=== PATIENT | male | born 1940 | race African-American/Black ===

== ENCOUNTER 2018-09-27 07:25 | Emergency (ER) | payer OTHER ==
[~2018-09-27] VITALS: Ht 170.2 cm; Wt 68.0 kg
[2018-09-27] MEDS ORDERED: diphenhydrAMINE 50 MG/ML VIAL IVP ONE (08:00)
[2018-09-27] MEDS ORDERED: FAMOTIDINE 20 MG/2 ML VIAL IVP ONE (08:00)
[2018-09-27] MEDS ORDERED: methylPREDNISolone SOD SUCC PF 125 MG/2 ML VIAL. IV ONE (08:00)
--- NOTE | 2018-09-27 08:29 | PHYS DOC ---
Past Medical History Past Medical History: No Pertinent History Past Surgical History: No Surgical History Alcohol Use: Occasionally Drug Use: None Adult General Chief Complaint Chief Complaint: FACE PROBLEM HPI HPI Patient is a 78-year-old male who presents with complaint of swelling to his lips that started yesterday. Patient states that he had noticed some itching yesterday morning around his cheeks and his lips and next thing he noticed, he had a lot of swelling. Patient does not take any medications and specifically does not take HALI inhibitor's. Patient states that he has had one similar prior episode in the past but has not identified any triggers. He does indicate that he shaved yesterday with the same shaving lotion as he has always used. He denies any swelling of his tongue, itchy throat, sore throat or difficulty swallowing. He also denies any shortness of breath. He has not yet taken any medications for the swelling. Review of Systems Review of Systems Constitutional: Denies fever or chills [] Eyes: Denies change in visual acuity, redness, or eye pain [] HENT: Denies nasal congestion or sore throat [] Respiratory: Denies cough or shortness of breath [] Cardiovascular: No additional information not addressed in HPI [] Integument: Denies rash or skin lesions. Positive lip swelling. [] All other systems were reviewed and found to be within normal limits, except as documented in this note. Current Medications Current Medications Current Medications Medications (Trade) Dose Ordered Sig/Cristian Start Time Stop Time Status Last Admin Dose Admin Diphenhydramine HCl (Benadryl) 50 mg 1X ONCE 09/27/18 08:30 09/27/18 08:31 DC 09/27/18 08:19 50 MG Famotidine (Pepcid Vial) 20 mg 1X ONCE 09/27/18 08:00 09/27/18 08:05 DC 09/27/18 08:18 20 MG Methylprednisolone Sodium Succinate (SOLU-Medrol 125MG VIAL) 125 mg 1X ONCE 09/27/18 08:00 09/27/18 08:05 DC 09/27/18 08:18 125 MG Allergies Allergies Allergies Coded Allergies Type Severity Reaction Last Updated Verified No Known Drug Allergies 09/27/18 No Physical Exam Physical Exam Constitutional: Well developed, well nourished, no acute distress, non-toxic appearance. [] HENT: Normocephalic, atraumatic, bilateral external ears normal, oropharynx moist, no oral exudates, nose normal. There is marked swelling of upper and lower lips as well as small amount of soft tissue swelling extending several centimeters around the perioral region. [] Eyes: PERRLA, EOMI, conjunctiva normal, no discharge. [] Neck: Normal range of motion, no tenderness, supple, no stridor. [] Cardiovascular:Heart rate regular rhythm [] Lungs & Thorax: Bilateral breath sounds clear to auscultation [] Skin: Warm, dry, no erythema, no rash. [] Extremities: No tenderness, no cyanosis, no clubbing, ROM intact, no edema. [] Neurologic: Alert and oriented X 3, normal motor function, normal sensory function, no focal deficits noted. [] Current Patient Data Vital Signs Vital Signs Date Time Temp Pulse Resp B/P (MAP) Pulse Ox O2 Delivery O2 Flow Rate FiO2 09/27/18 07:36 97.5 90 16 166/87 (113) 97 Room Air 97.5 EKG EKG [] Radiology/Procedures Radiology/Procedures [] Course & Med Decision Making Course & Med Decision Making Pertinent Labs and Imaging studies reviewed. (See chart for details) After evaluation of patient, an IV was established and patient given IV Solu- Medrol and Pepcid. Patient additionally given by mouth Benadryl in lieu of IV Benadryl due to national shortage. Patient reevaluated approximately one hour after medications given and he states that he feels like swelling is improving. Patient continues to have no problems with swallowing, itchy or sore throat, shortness of breath. Patient will be discharged home with prescriptions for Benadryl and steroids. Patient instructed to return to the emergency room if he has any acute worsening of symptoms. Dragon Disclaimer Dragon Disclaimer This electronic medical record was generated, in whole or in part, using a voice recognition dictation system. Departure Departure Impression: Primary Impression: Angioedema Disposition: 01 HOME, SELF-CARE Condition: STABLE Referrals: NO PCP (PCP) Patient Instructions: Angioedema Scripts Diphenhydramine Hcl (DIPHENHYDRAMINE HCL) 50 Mg Capsule 1 CAP PO Q6HRS PRN for facial swelling, #30 CAP 1 Refill Prov: LIN MONTELONGO Jr. DO 09/27/18 Methylprednisolone (MEDROL) 4 Mg Tab.ds.pk 1 PKG PO UD, #1 PKG Prov: LIN MONTELONGO Jr. DO 09/27/18 Problem Qualifiers Primary Impression: Angioedema Encounter type: initial encounter Qualified Codes: T78.3XXA - Angioneurotic edema, initial encounter LIN MONTELONGO Jr. DO Sep 27, 2018 08:29
[2018-09-27] MEDS ORDERED: diphenhydrAMINE HCL 25 MG CAPSULE PO ONE (08:30)
[2018-09-27] MEDS ORDERED: METH4TAB2 PO (09:33)
[2018-09-27] MEDS ORDERED: DIPH50CA PO (09:33)
[2018-09-27 09:34] VITALS: BP 152/89
== END 2018-09-27 09:45 | disposition home or self-care (01) ==
LOC: ER 07:25
DX: T78.3XXA Angioneurotic edema, initial encounter (principal)
CPT/HCPCS: 96374; 96375; 99284; J2930; J3490; Q0163

== ENCOUNTER 2021-11-30 11:00 | Inpatient (IN) | payer MEDICARE ==
[~2021-11-30] VITALS: Ht 170.2 cm; Wt 62.0 kg
[~2021-11-30 11:00] MED LIST: DIPH50CA16 PO; METH4TAB2 PO
--- NOTE | 2021-11-30 11:02 | PHYS DOC ---
Past Medical History Past Medical History: No Pertinent History Past Surgical History: No Surgical History Smoking Status: Never Smoker Alcohol Use: Occasionally Drug Use: None Adult General HPI HPI Patient is a 81 year old male who presents with dyspnea and chest pain. Patient arrives via EMS. He was reporting chest pain and shortness of breath to the ambulance crew. They noted him to have hypotension in route with systolic blood pressures in the 60s and 70s. On arrival to the ER, however, the patient denies complaints other than feeling cold. When asked why he called EMS, he states he was too cold in his house. He does have heat which he states to be functioning. He denies chest pain or shortness of breath during the interview. Reports he has been at baseline health. No abdominal pain. No nausea or vomiting. Review of Systems Review of Systems Constitutional: Denies fever or chills Eyes: Denies change in visual acuity HENT: Denies nasal congestion or sore throat Respiratory: Denies cough or shortness of breath Cardiovascular: No additional information not addressed in HPI GI: Denies abdominal pain, nausea, vomiting, bloody stools or diarrhea : Denies dysuria or hematuria Musculoskeletal: Denies back pain or joint pain Integument: Denies rash or skin lesions Neurologic: Denies headache, focal weakness or sensory changes Endocrine: Denies polyuria or polydipsia All other systems were reviewed and found to be within normal limits, except as documented in this note. Current Medications Current Medications Current Medications Medications (Trade) Dose Ordered Sig/Cristian Start Time Stop Time Status Last Admin Dose Admin Aspirin (Aspirin Chewable) 324 mg 1X ONCE 11/30/21 12:00 11/30/21 12:01 DC Aspirin (Ecotrin) 81 mg [id number] 12/01/21 08:00 Heparin Sodium (Porcine) (Heparin Sodium) 4,000 unit 1X ONCE 11/30/21 13:15 11/30/21 13:16 DC 11/30/21 13:50 4,000 UNIT Heparin Sodium/ Dextrose 250 ml @ 9.824 mls/ hr CONT PRN 11/30/21 15:00 11/30/21 15:04 9.824 MLS/HR Info (CONTRAST GIVEN -- Rx MONITORING) 1 each PRN DAILY PRN 11/30/21 13:45 12/02/21 13:44 Iohexol (Omnipaque 350 Mg/ml) 75 ml 1X ONCE 11/30/21 13:45 11/30/21 13:46 DC 11/30/21 14:10 75 ML Sodium Chloride 1,000 ml @ 75 mls/hr 1X ONCE 11/30/21 13:30 12/01/21 02:49 11/30/21 13:52 75 MLS/HR Allergies Allergies Allergies Coded Allergies Type Severity Reaction Last Updated Verified No Known Drug Allergies 09/27/18 No Physical Exam Physical Exam Constitutional: Well developed, well nourished, no acute distress, non-toxic appearance HENT: bilateral external ears normal, oropharynx moist, no oral exudates, nose normal Eyes: PERRLA, EOMI, conjunctiva normal, no discharge Neck: Normal range of motion, no tenderness, supple Cardiovascular:Heart rate regular rhythm, no murmur Lungs & Thorax: Bilateral breath sounds clear to auscultation Abdomen: Bowel sounds normal, soft, no tenderness Skin: Warm, dry, no erythema, no rash Back: No tenderness, no CVA tenderness. Extremities: No tenderness, no cyanosis, no clubbing, ROM intact, no edema Neurologic: Alert and oriented X 3 Psychologic: Affect normal Current Patient Data Vital Signs Vital Signs Date Time Temp Pulse Resp B/P (MAP) Pulse Ox O2 Delivery O2 Flow Rate FiO2 11/30/21 11:00 98.8 110 28 102/74 (83) Nasal Cannula 98.8 Lab Values Laboratory Tests Test 11/30/21 11:20 11/30/21 12:30 11/30/21 14:00 White Blood Count 8.2 x10^3/uL (4.0-11.0) Red Blood Count 4.60 x10^6/uL (4.30-5.70) Hemoglobin 14.1 g/dL (13.0-17.5) Hematocrit 43.8 % (39.0-53.0) Mean Corpuscular Volume 95 fL (79-100) Mean Corpuscular Hemoglobin 31 pg (25-35) Mean Corpuscular Hemoglobin Concent 32 g/dL (31-37) Red Cell Distribution Width 14.7 % (11.5-14.5) H Platelet Count 203 x10^3/uL (140-400) Neutrophils (%) (Auto) 47 % (31-73) Lymphocytes (%) (Auto) 45 % (24-48) Monocytes (%) (Auto) 5 % (0-9) Eosinophils (%) (Auto) 2 % (0-3) Basophils (%) (Auto) 1 % (0-3) Neutrophils # (Auto) 3.9 x10^3/uL (1.8-7.7) Lymphocytes # (Auto) 3.7 x10^3/uL (1.0-4.8) Monocytes # (Auto) 0.4 x10^3/uL (0.0-1.1) Eosinophils # (Auto) 0.2 x10^3/uL (0.0-0.7) Basophils # (Auto) 0.0 x10^3/uL (0.0-0.2) Erythrocyte Sedimentation Rate 3 (0-15) Sodium Level 140 mmol/L (136-145) Potassium Level 3.5 mmol/L (3.5-5.1) Chloride Level 102 mmol/L (98-107) Carbon Dioxide Level 20 mmol/L (21-32) L Anion Gap 18 (6-14) H Blood Urea Nitrogen 15 mg/dL (8-26) Creatinine 1.6 mg/dL (0.7-1.3) H Estimated GFR (Cockcroft-Gault) 50.6 Glucose Level 278 mg/dL (70-99) H Calcium Level 8.4 mg/dL (8.5-10.1) L Magnesium Level 2.6 mg/dL (1.8-2.4) H Total Bilirubin 0.6 mg/dL (0.2-1.0) Direct Bilirubin 0.2 mg/dL (0.0-0.2) Aspartate Amino Transferase (AST) 476 U/L (15-37) H Alanine Aminotransferase (ALT) 310 U/L (16-63) H Alkaline Phosphatase 178 U/L (46-116) H Troponin I High Sensitivity 322 ng/L (4-75) H 981 ng/L (4-75) H Total Protein 7.2 g/dL (6.4-8.2) Albumin 2.8 g/dL (3.4-5.0) L Influenza Type A Antigen Negative (NEGATIVE) Influenza Type B Antigen Negative (NEGATIVE) SARS-CoV-2 Antigen (Rapid) Positive (NEGATIVE) *A Prothrombin Time 15.5 SEC (11.7-14.0) H Prothrombin Time INR 1.2 (0.8-1.1) H Activated Partial Thromboplast Time 26 SEC (24-38) D-Dimer (Heike) > 20.00 ug/mlFEU Laboratory Tests 11/30/21 11:20 Laboratory Tests 11/30/21 11:20 EKG EKG 11:00 RBBB. Sinus tachy. 12:05: No dynamic changes. Continued RBBB. Sinus tachy. No old EKG for comparison Radiology/Procedures Radiology/Procedures [] Course & Med Decision Making Course & Med Decision Making Pertinent Labs and Imaging studies reviewed. (See chart for details) Patient is evaluated on arrival to his room. Systolic blood pressure is 104. He denies complaints and cannot say why he called EMS. He only answers questions by saying "I am cold." EKG is completed and no STEMI is present. Labs and x-ray ordered. 11:45: Patient is re-evaluated. C/o mild dyspnea. CXR reviewed and no acute findings. Dimer ordered. 14:30: All results are reviewed and discussed with the patient. He came to the ER originally complaining of only being called. At that time, he is noted to be mildly tachypneic and have tachycardia. Because of this, dimer was ordered. Dimer was noted to be significantly elevated. Following this, he underwent CT angiography which was revealing for pulmonary embolus with significant clot burden. During the ER course, he was given a heated blanket and was much more comfortable. He did not complain of being short of breath. His tachypnea did resolve. He did continue to have heart rate of 115. Was noted to have mildly elevated troponin and cardiology was consulted in the emergency department regarding this finding. Patient did not have chest pain. Stable for admission to [facility] or [facility] telemetry floor. I spoke to Dr. Padilla who will primarily admit. Mr. Chawla is agreeable to this plan of care. Heparin was initially started in the ER for elevated troponin. The dose was elevated when his d iagnosis of pulmonary embolus became evident. Dragon Disclaimer Dragon Disclaimer This electronic medical record was generated, in whole or in part, using a voice recognition dictation system. Departure Departure Impression: Primary Impression: COVID-19 Additional Impression: Pulmonary embolus Disposition: ADMITTED INPATIENT Condition: GOOD Referrals: NO PCP (PCP) Problem Qualifiers CARLOS EDUARDO BRYANT DO Nov 30, 2021 11:02
--- NOTE | 2021-11-30 11:14 | EKG ---
[facility] [address] [place] [address] Test Date: 2021-11-30 Test Time: 10:58:57 Pat Name: MORENO ALEXIS Department: Room: Gender: M Faith Healer: : 1940 Requested By: CARLOS EDUARDO BRYANT Order Number: [id number] Reading MD: Kirit Smith MD Measurements Intervals [place] Rate: 105 P: 0 MS: 104 QRS: 92 QRSD: 130 T: -24 QT: 348 QTc: 464 Interpretive Statements SINUS TACHYCARDIA RBBB PACS Electronically Signed On 12-03-2021 9:34:41 BIOTECHNICIAN by Kirit Smith MD
[2021-11-30] MEDS ORDERED: IV NORMAL SALINE 1000ML BAG 1,000 ML IV ONE ×2 (11:15→13:30)
[2021-11-30 11:31] LABS: BASO % 1 % (0-3); EOS # 0.2 x10^3/uL (0.0-0.7); EOS % 2 % (0-3); HEMATOCRIT 43.8 % (39.0-53.0); HEMOGLOBIN 14.1 g/dL (13.0-17.5); LYMPH # 3.7 x10^3/uL (1.0-4.8); LYMPH % 45 % (24-48); MEAN CORPUSCULAR HEMOGLOBIN 31 pg (25-35); MEAN CORPUSCULAR HGB CONC 32 g/dL (31-37); MEAN CORPUSCULAR VOLUME 95 fL (79-100); MONO # 0.4 x10^3/uL (0.0-1.1); MONO % 5 % (0-9); NEUT # 3.9 x10^3/uL (1.8-7.7); NEUT % 47 % (31-73); PLATELET COUNT 203 x10^3/uL (140-400); RED CELL DISTRIBUTION WIDTH 14.7 % (11.5-14.5); WHITE BLOOD COUNT 8.2 x10^3/uL (4.0-11.0)
[2021-11-30 11:42] LABS: CALCIUM 8.4 mg/dL (8.5-10.1); CREATININE 1.6 mg/dL (0.7-1.3); GFR 50.6; POTASSIUM 3.5 mmol/L (3.5-5.1)
--- NOTE | 2021-11-30 11:42 | RAD ---
XR CHEST 1V History: Reason: dyspnea / Spl. Instructions: / History: Comparison: None. Findings: No consolidation or pleural effusion. Normal heart size. No pneumothorax. Impression: 1. No acute cardiopulmonary process. Electronically signed by: Rocco Hughes DO (11/30/2021 11:39 AM) [id number]
[2021-11-30 11:50] LABS: INFLUENZA A PATIENT NEGATIVE (NEGATIVE); INFLUENZA B PATIENT NEGATIVE (NEGATIVE)
[2021-11-30] MEDS ORDERED: ASPIRIN CHEWABLE 81 MG TABLET. PO ONE (12:00)
[2021-11-30] MEDS ORDERED: HEPARIN 25,000UTS/250ML PREMIX 250 ML IV PRN (12:45)
--- NOTE | 2021-11-30 12:46 | PDOC2 ---
ABHIJIT DOOLEY HOTEL SECURITY OFFICER 11/30/21 1246: CARDIAC CONSULT DATE OF CONSULT Date of Consult DATE: 11/30/21 TIME: 12:37 REASON FOR CONSULT Reason for Consult: Chest pain REFERRING PHYSICIAN Referring Physician: Ramon SOURCE Source: Chart review, Patient HISTORY OF PRESENT ILLNESS HISTORY OF PRESENT ILLNESS This is an 81 yo male admitted for complains of chest pain and SOA. EMS noted that his SBP was in the 60-70s. He received IVF bolus and he is now normotensive. Reports that his chest pain mid chest pressure like started this morning and with SOA. Denies palpitations. He does not feel well. No nausea or vomiting. No fever or chills. Denies any prior exposure for covid-19 but he was noted to be positive and he has been vaccinated with booster about a month ago. Denies any past hx of CAD, VTE, COPD, arrhythmias. No recent falls or injury. He does not take any routine medications and could not remember ever having stress test. He typically goes to the NH for routine follow ups but has not been hospitalized for a while. Denies any leg swelling. PAST MEDICAL HISTORY Past Medical History No pertinent history PAST SURGICAL HISTORY Past Surgical History: Hernia Repair (right) FAMILY HISTORY Family History Noncontributory to CV SOCIAL HISTORY Smoke: No ALCOHOL: occassional Drugs: None Lives: Alone CURRENT MEDICATIONS CURRENT MEDICATIONS Current Medications Medications (Trade) Dose Ordered Sig/Cristian Route PRN Reason Start Time Stop Time Status Last Admin Dose Admin Sodium Chloride 1,000 ml @ 1,000 mls/hr 1X ONCE IV 11/30/21 11:15 11/30/21 12:14 DC 11/30/21 11:35 ALLERGIES ALLERGIES: Coded Allergies: No Known Drug Allergies (Unverified , 09/27/18) ROS Review of System 14 point ROS evaluated with pertinent positives noted per HPI PHYSICAL EXAM General: Alert, Oriented X3, Cooperative, No acute distress HEENT: Atraumatic, Mucous membr. moist/pink Lungs: Clear to auscultation, Normal air movement Heart: Regular rate (Sinus tachycardia), Normal S1, Normal S2, No murmurs Abdomen: Soft, No tenderness Extremities: No cyanosis, No edema Skin: No breakdown, No significant lesion Neuro: Normal speech, Sensation intact Psych/Mental Status: Mental status NL, Mood NL MUSCULOSKELETAL: Osteoarthritic changes both hands VITALS/I&O VITALS/I&O: Vital Signs Date Time Temp Pulse Resp B/P (MAP) Pulse Ox O2 Delivery O2 Flow Rate FiO2 11/30/21 11:00 98.8 110 28 102/74 (83) Nasal Cannula 98.8 LABS Lab: Laboratory Tests Test 11/30/21 11:20 White Blood Count 8.2 x10^3/uL (4.0-11.0) Red Blood Count 4.60 x10^6/uL (4.30-5.70) Hemoglobin 14.1 g/dL (13.0-17.5) Hematocrit 43.8 % (39.0-53.0) Mean Corpuscular Volume 95 fL (79-100) Mean Corpuscular Hemoglobin 31 pg (25-35) Mean Corpuscular Hemoglobin Concent 32 g/dL (31-37) Red Cell Distribution Width 14.7 % (11.5-14.5) H Platelet Count 203 x10^3/uL (140-400) Neutrophils (%) (Auto) 47 % (31-73) Lymphocytes (%) (Auto) 45 % (24-48) Monocytes (%) (Auto) 5 % (0-9) Eosinophils (%) (Auto) 2 % (0-3) Basophils (%) (Auto) 1 % (0-3) Neutrophils # (Auto) 3.9 x10^3/uL (1.8-7.7) Lymphocytes # (Auto) 3.7 x10^3/uL (1.0-4.8) Monocytes # (Auto) 0.4 x10^3/uL (0.0-1.1) Eosinophils # (Auto) 0.2 x10^3/uL (0.0-0.7) Basophils # (Auto) 0.0 x10^3/uL (0.0-0.2) Sodium Level 140 mmol/L (136-145) Potassium Level 3.5 mmol/L (3.5-5.1) Chloride Level 102 mmol/L (98-107) Carbon Dioxide Level 20 mmol/L (21-32) L Anion Gap 18 (6-14) H Blood Urea Nitrogen 15 mg/dL (8-26) Creatinine 1.6 mg/dL (0.7-1.3) H Estimated GFR (Cockcroft-Gault) 50.6 Glucose Level 278 mg/dL (70-99) H Calcium Level 8.4 mg/dL (8.5-10.1) L Troponin I High Sensitivity 322 ng/L (4-75) H Influenza Type A Antigen Negative (NEGATIVE) Influenza Type B Antigen Negative (NEGATIVE) SARS-CoV-2 Antigen (Rapid) Positive (NEGATIVE) *A Laboratory Tests 11/30/21 11:20 Laboratory Tests 11/30/21 11:20 ASSESSMENT/PLAN ASSESSMENT/PLAN 1. Chest pain: none further 2. NSTEMI in the setting of covid-19. Initial EKG SR with RBBB, subtle changes to high lateral leads and follow up EKG with no further RBBB. Presently sinus tachycardia 120s. Need to rule out PE, high DDIMER 3. Covid-19 4. ERLINDA vs CKD 5. Hypotension: BP better after IVF 6. Hyperglycemia vs DM 7. Anion gap metabolic acidosis Recommendations 1. ASA. Start on heparin drip 2. IVF bolus received. Continue maintenance IVF 3. Check UA, LFTs, Mg. Trend troponin 4. CTA chest JOHNY BROWER MD 11/30/21 1743: CARDIAC CONSULT ASSESSMENT/PLAN ASSESSMENT/PLAN The patient was seen and interviewed as well as examined at the bedside. The chart was reviewed. The case was discussed. Agree with the plan of care. ABHIJIT DOOLEY APRN Nov 30, 2021 12:46 JOHNY BROWER MD Nov 30, 2021 17:43
[2021-11-30 13:15] LABS: PROTHROMBIN TIME PATIENT 15.5 SEC (11.7-14.0)
[2021-11-30] MEDS ORDERED: HEPARIN for IV BOLUS 10,000 UNIT/10 ML VIAL. IV ONE (13:15)
[2021-11-30] MEDS ORDERED: CONTRAST GIVEN. MC PRN (13:45)
[2021-11-30] MEDS ORDERED: IOHEXOL 350 MG/ML 100 ML VIAL. IV ONE (13:45)
[2021-11-30 14:12] LABS: ALBUMIN 2.8 g/dL (3.4-5.0); DIRECT BILIRUBIN 0.2 mg/dL (0.0-0.2); MAGNESIUM 2.6 mg/dL (1.8-2.4); TOTAL BILIRUBIN 0.6 mg/dL (0.2-1.0); TOTAL PROTEIN 7.2 g/dL (6.4-8.2)
--- NOTE | 2021-11-30 14:45 | RAD ---
Examination: CT angiography chest with IV contrast HISTORY: History of dyspnea, elevated d-dimer COMPARISON: None available TECHNIQUE: Axial CT angiographic images of chest were performed with IV contrast. Coronal and sagitta l 3-D MIP reformats are performed Exposure: One or more of the following individualized dose reduction techniques were utilized for thi s examination: 1. Automated exposure control 2. Adjustment of the mA and/or kV according to patient size 3. Use of iterative reconstruction technique. FINDINGS: The central airways are patent. The caliber of the aorta grossly appears unremarkable. There is filli ng defect identified in the right main pulmonary arterial trunk extending into the right upper lobe, right middle lobe and right lower lobe pulmonary arterial branches throughout likely pulmonary emboli with complete filling of some of the branches of the right middle lobe and right lower lobe pulmonar y arteries. There are filling defects identified in the left lower lobe, left lingular distal pulmona ry arteries likely pulmonary emboli. Mild soft tissue thickening identified in the bilateral hilar region could be hilar lymphadenopathy. There is a 6 mm spiculated nodule identified in the left apical lungs. Few scattered subcentimeter no dules identified in the right middle lobe, right lower lobe of the lung. Linear atelectasis right mid dle lobe lung along the fissure. The liver, adrenals grossly appears unremarkable. Mild degenerative changes thoracic spine. IMPRESSION: 1. Filling defects identified in the right main pulmonary arterial trunk extending into the right up per lobe, right middle lobe and right lower lobe pulmonary arterial branches throughout likely pulmon carla emboli with complete filling of some of the branches of the right middle lobe and right lower lob e pulmonary arteries. There are filling defects identified in the left lower lobe, left lingular dist al pulmonary arteries likely pulmonary emboli. 2. 6 mm spiculated nodule identified in the left apical lungs. 3. Few scattered subcentimeter nodules identified in the right middle lobe, right lower lobe of the lung. Per Fleischner Society guidelines for incidentally found multiple solid nodules measuring 6-8 m m, initial CT follow-up is recommended in 3-6 months. Additional follow-up can be considered in 18-24 month based on risk factors. Metastasis is not excluded. 4. Mild soft tissue thickening identified in the bilateral hilar region could be hilar lymphadenopat hy. FOR INTERNAL CODING PURPOSES Critical result: Findings discussed with CARLOS EDUARDO BRYANT DO at 11/30/2021 2:43 PM. RESULT CODE: (C) Electronically signed by: Jose A Gleason MD (11/30/2021 2:43 PM) [id number]
[2021-11-30] MEDS: HEPARIN 25,000UTS/250ML PREMIX 250 ML IV PRN (15:04)
[2021-11-30] MEDS ORDERED: guaiFENesin/CODEINE 100mg/10mg 5 ML LIQUID PO PRN (16:30)
--- NOTE | 2021-11-30 16:34 | EKG ---
[facility] [address] [place] [address] Test Date: 2021-11-30 Test Time: 12:02:18 Pat Name: MORENO ALEXIS Department: Room: ED HOLD 4 Gender: M Paper Sales Manager: : 1940 Requested By: CARLOS EDUARDO BRYANT Order Number: [id number] Reading MD: Kirit Smith MD Measurements Intervals [place] Rate: 125 P: -170 MS: 108 QRS: 77 QRSD: 98 T: -34 QT: 316 QTc: 458 Interpretive Statements SINUS TACHYCARDIA Electronically Signed On 12-03-2021 9:30:35 TRESTLE BUILDER by Kirit Smith MD
--- NOTE | 2021-11-30 17:13 | HP ---
DATE OF SERVICE: 11/30/2021 ADMIT DATE: 11/30/2021 CHIEF COMPLAINT: Shortness of breath and chest discomfort, hypotension. HISTORY OF PRESENT ILLNESS: The patient is a pleasant 81-year-old male who has had COVID in the past. He states he has had 2 of his vaccines. He called EMS when he was having some chest discomfort and shortness of breath. When EMS arrived, his systolic blood pressure was 70. While in the ER, he is noted to have a troponin elevation of 322. We checked it again, it is now up to 981. He also has an elevated D-dimer of 20. We checked a CAT scan of the chest, it is showing a pulmonary embolism. I discussed the case with ER physician. We admitted the patient. We are consulting Pulmonary and Cardiology and placing the patient on a heparin drip and modified COVID protocol. PAST MEDICAL HISTORY: COVID-19, hernia repair. ALLERGIES: None. FAMILY HISTORY: Diabetes. SOCIAL HISTORY: He does not drink, smoke or take drugs. MEDICATIONS: Reviewed. Please refer to the MRAD. REVIEW OF SYSTEMS: GENERAL: He complains of weakness. SKIN: No bruising, hair changes or rashes. EYES: No blurred, double or loss of vision. NOSE AND THROAT: No history of nosebleeds, hoarseness or sore throat. HEART: He complains of chest pain. LUNGS: He complains of shortness of breath. GASTROINTESTINAL: Denies changes in appetite, nausea, vomiting, diarrhea or constipation. GENITOURINARY: No history of frequency, urgency, hesitancy or nocturia. NEUROLOGIC: Denies history of numbness, tingling, tremor or weakness. PSYCHIATRIC: No history of panic, anxiety or depression. ENDOCRINE: No history of heat or cold intolerance, polyuria or polydipsia. EXTREMITIES: Denies muscle weakness, joint pain, pain on walking or stiffness. PHYSICAL EXAMINATION: VITALS: Within normal limits and are stable. GENERAL: He is very weak. HEENT: Normal cephalic atraumatic, external auditory canals are patent. EYES: Extraocular muscles are intact, pupils are equally round and reactive to light and accommodation. MUSCULOSKELETAL: Well developed, well nourished, good range of motion. ENDOCRINE: No thyromegaly was palpated. LYMPHATICS: No cervical chain or axillary nodes were noted. HEMATOPOIETIC: No bruising. NECK: Supple, no JVD, no thyromegaly was noted. LUNGS: Clear to auscultation in all lung gordon without rhonchi or wheezing. HEART: RRR, S1, S2 present. Peripheral pulses intact, no obvious murmurs were noted. ABDOMEN: Soft, nontender. Positive bowel sounds no organomegaly, normal bowel sounds. EXTREMITIES: Without any cyanosis, clubbing, or edema. Pedal pulses intact, Homans sign is negative. NEUROLOGIC: He is very weak. PSYCHIATRIC: He is very weak. SKIN: No ulcerations or rashes, good skin turgor, no jaundice. VASCULAR: Good capillary refill, neurovascular bundle appears to be intact. LABORATORY DATA: Creatinine is 1.6. Hematology is normal. D-dimer greater than 20. Troponin is 981. COVID testing positive. DIAGNOSTIC DATA: CT of the chest shows PE. Chest x-ray shows no acute pulmonary disease. ASSESSMENT AND PLAN: Pulmonary embolism, cardiac strain from pulmonary embolism, elevated troponin, chronic renal insufficiency and COVID-19 positive. The patient has been admitted. We are consulting Cardiology and Pulmonary Medicine. We started the heparin protocol. I placed him on steroids, vitamins and minerals, oxygen, aspirin, codeine cough syrup. He is not a candidate for the remdesivir at this time because he has had the disease for quite a while. Trend labs. Home medications. Deep vein thrombosis prophylaxis. Full code. Long-term prognosis is guarded. JASON DR: Marleny TID: [id number]
[2021-11-30 19:19] VITALS: BP 115/66
[2021-11-30] MEDS: methylPREDNISolone SOD SUCC PF 40 MG/ML VIAL. IV SCH (19:23)
[2021-11-30 22:49] VITALS: BP 127/75
[2021-12-01 03:14] VITALS: BP 154/91
[2021-12-01 03:21] LABS: HEMATOCRIT 40.3 % (39.0-53.0); HEMOGLOBIN 13.4 g/dL (13.0-17.5); RED BLOOD COUNT 4.42 x10^6/uL (4.30-5.70); RED CELL DISTRIBUTION WIDTH 14.7 % (11.5-14.5); WHITE BLOOD COUNT 4.5 x10^3/uL (4.0-11.0)
[2021-12-01 03:40] LABS: ALBUMIN/GLOBULIN RATIO 0.7 (1.0-1.7); CALCIUM 8.1 mg/dL (8.5-10.1); CHOLESTEROL/HDL RATIO 3.2; CREATININE 1.2 mg/dL (0.7-1.3); GFR 70.5; POTASSIUM 4.2 mmol/L (3.5-5.1); TOTAL BILIRUBIN 0.3 mg/dL (0.2-1.0); TOTAL PROTEIN 7.3 g/dL (6.4-8.2)
[2021-12-01 07:00] VITALS: BP 117/69
[2021-12-01] MEDS ORDERED: ONDANSETRON PF 4 MG/2 ML VIAL. IVP PRN (08:15)
[2021-12-01] MEDS ORDERED: guaiFENesin DM 200MG/20MG 10 ML SYRUP PO PRN (08:15)
[2021-12-01] MEDS ORDERED: ACETAMINOPHEN 325 MG TABLET. PO PRN (08:15)
[2021-12-01] MEDS: methylPREDNISolone SOD SUCC PF 40 MG/ML VIAL. IV SCH ×2 (08:51→21:01)
[2021-12-01] MEDS: HEPARIN 25,000UTS/250ML PREMIX 250 ML IV PRN (08:52)
[2021-12-01] MEDS: MULTIVITAMIN with MINERAL TABLET. PO SCH (08:52)
[2021-12-01] MEDS: ASPIRIN ENTERIC COATED 81 MG TABLET.DR. PO SCH (08:52)
--- NOTE | 2021-12-01 09:04 | PDOC ---
[employer] PROGRESS NOTE Date of Service DOS: DATE: 12/01/21 TIME: 08:24 Chief Complaint Chief Complaint Acute Pulmonary embolism - right main pulmonary artery and upper lobe middle lobe and lower lobe also the left lower lobe left lingula. Lung nodules - left upper lobe 6 mm lung and scattered right middle and right lower lobe subcentimeter Chest pain - likely due to PE, improved NSTEMI - likely demand ischemia from PE, possibly some myocardial strain related to COVID 19 Covid-19 ERLINDA - likely vasomotor nephropathy from PE and COVID 19 vs CKD Hypotension - likely hypovolemic shock, responded well to fluids Hyperglycemia - Anion gap metabolic acidosis History of Present Illness History of Present Illness Mr Chawla is an 81 yo male w/ no significant PMHx who presents to ED via EMS on 11/30/2021 c/o sudden onset chest pain that woke him up, lasting 30 minutes. Also noted being cold with associated dyspnea and some myalgias. Notably hypotensive enroute with SBP 60s-70s. He did not c/o abdominal pain or nausea or vomiting. Labs with WBC 8.2, Hb 14.1, platelets 203, NA 140, K3.5, BUN 15, CR 1.6, glucose 278, D-dimer greater than 20, INR 1.2, rapid influenza negative, rapid COVID-19 positive, high-sensitivity troponin is 322 and on repeat is 981, albumin 2.8, bilirubin 0.6, AST 476, ALT 310, alkaline phosphatase 178 EKG sinus tachycardia with RBBB. CTPA revealed right main pulmonary artery pulmonary embolism with distal emboli bilaterally. Admitted for further care on heparin GTT. Cardiology and Pulmonology were consulted in the ED. 12/01: Chest pain resolved. Currently not hypoxic. Discussed with pulmonology who will continue anticoagulation with heparin and transition to Eliquis after he had CT abdomen pelvis to assess for potential underlying malignancy. Vitals/I&O Vitals/I&O: Vital Signs Date Time Temp Pulse Resp B/P (MAP) Pulse Ox O2 Delivery O2 Flow Rate FiO2 12/01/21 07:00 97.6 96 20 117/69 (85) 91 Room Air 97.6 11/30/21 16:23 2.0 I & O 0 11/30/21 11/30/21 12/01/21 15:00 23:00 07:00 Intake Total 50 ml 68.6 ml Output Total 100 ml 200 ml Balance -50 ml -131.4 ml Physical Exam General: Alert, Oriented X3, Cooperative, No acute distress Heart: Regular rate (Sinus tachycardia), Normal S1, Normal S2, No murmurs Abdomen: Soft, No tenderness Extremities: No cyanosis, No edema Skin: No breakdown, No significant lesion Labs Labs: Laboratory Tests Test 11/30/21 11:20 11/30/21 12:30 11/30/21 14:00 11/30/21 19:40 White Blood Count 8.2 x10^3/uL (4.0-11.0) Red Blood Count 4.60 x10^6/uL (4.30-5.70) Hemoglobin 14.1 g/dL (13.0-17.5) Hematocrit 43.8 % (39.0-53.0) Mean Corpuscular Volume 95 fL (79-100) Mean Corpuscular Hemoglobin 31 pg (25-35) Mean Corpuscular Hemoglobin Concent 32 g/dL (31-37) Red Cell Distribution Width 14.7 % (11.5-14.5) Platelet Count 203 x10^3/uL (140-400) Neutrophils (%) (Auto) 47 % (31-73) Lymphocytes (%) (Auto) 45 % (24-48) Monocytes (%) (Auto) 5 % (0-9) Eosinophils (%) (Auto) 2 % (0-3) Basophils (%) (Auto) 1 % (0-3) Neutrophils # (Auto) 3.9 x10^3/uL (1.8-7.7) Lymphocytes # (Auto) 3.7 x10^3/uL (1.0-4.8) Monocytes # (Auto) 0.4 x10^3/uL (0.0-1.1) Eosinophils # (Auto) 0.2 x10^3/uL (0.0-0.7) Basophils # (Auto) 0.0 x10^3/uL (0.0-0.2) Erythrocyte Sedimentation Rate 3 (0-15) Sodium Level 140 mmol/L (136-145) Potassium Level 3.5 mmol/L (3.5-5.1) Chloride Level 102 mmol/L (98-107) Carbon Dioxide Level 20 mmol/L (21-32) Anion Gap 18 (6-14) Blood Urea Nitrogen 15 mg/dL (8-26) Creatinine 1.6 mg/dL (0.7-1.3) Estimated GFR (Cockcroft-Gault) 50.6 Glucose Level 278 mg/dL (70-99) Calcium Level 8.4 mg/dL (8.5-10.1) Magnesium Level 2.6 mg/dL (1.8-2.4) Total Bilirubin 0.6 mg/dL (0.2-1.0) Direct Bilirubin 0.2 mg/dL (0.0-0.2) Aspartate Amino Transf (AST/SGOT) 476 U/L (15-37) Alanine Aminotransferase (ALT/SGPT) 310 U/L (16-63) Alkaline Phosphatase 178 U/L (46-116) Troponin I High Sensitivity 322 ng/L (4-75) 981 ng/L (4-75) 2561 ng/L (4-75) Total Protein 7.2 g/dL (6.4-8.2) Albumin 2.8 g/dL (3.4-5.0) Influenza Type A Antigen Negative (NEGATIVE) Influenza Type B Antigen Negative (NEGATIVE) SARS-CoV-2 Antigen (Rapid) Positive (NEGATIVE) Prothrombin Time 15.5 SEC (11.7-14.0) Prothromb Time International Ratio 1.2 (0.8-1.1) Activated Partial Thromboplast Time 26 SEC (24-38) D-Dimer (Heike) > 20.00 ug/mlFEU Heparin Anti-Xa Act, Unfractionated 0.52 IU/mL (0.30-0.70) Test 12/01/21 03:15 White Blood Count 4.5 x10^3/uL (4.0-11.0) Red Blood Count 4.42 x10^6/uL (4.30-5.70) Hemoglobin 13.4 g/dL (13.0-17.5) Hematocrit 40.3 % (39.0-53.0) Mean Corpuscular Volume 91 fL (79-100) Mean Corpuscular Hemoglobin 30 pg (25-35) Mean Corpuscular Hemoglobin Concent 33 g/dL (31-37) Red Cell Distribution Width 14.7 % (11.5-14.5) Platelet Count 216 x10^3/uL (140-400) Heparin Anti-Xa Act, Unfractionated 0.47 IU/mL (0.30-0.70) Sodium Level 140 mmol/L (136-145) Potassium Level 4.2 mmol/L (3.5-5.1) Chloride Level 107 mmol/L (98-107) Carbon Dioxide Level 23 mmol/L (21-32) Anion Gap 10 (6-14) Blood Urea Nitrogen 16 mg/dL (8-26) Creatinine 1.2 mg/dL (0.7-1.3) Estimated GFR (Cockcroft-Gault) 70.5 BUN/Creatinine Ratio 13 (6-20) Glucose Level 120 mg/dL (70-99) Calcium Level 8.1 mg/dL (8.5-10.1) Total Bilirubin 0.3 mg/dL (0.2-1.0) Aspartate Amino Transf (AST/SGOT) 420 U/L (15-37) Alanine Aminotransferase (ALT/SGPT) 397 U/L (16-63) Alkaline Phosphatase 188 U/L (46-116) Troponin I High Sensitivity 2056 ng/L (4-75) Total Protein 7.3 g/dL (6.4-8.2) Albumin 3.0 g/dL (3.4-5.0) Albumin/Globulin Ratio 0.7 (1.0-1.7) Triglycerides Level 33 mg/dL (0-150) Cholesterol Level 162 mg/dL (0-200) LDL Cholesterol, Calculated 105 mg/dL (0-100) VLDL Cholesterol, Calculated 7 mg/dL (0-40) Non-HDL Cholesterol Calculated 112 mg/dL (0-129) HDL Cholesterol 50 mg/dL (40-60) Cholesterol/HDL Ratio 3.2 Thyroid Stimulating Hormone (TSH) 0.330 uIU/mL (0.358-3.74) Assessment and Plan Assessmemt and Plan Problems Medical Problems: (1) COVID-19 Status: Acute (2) Pulmonary embolus Status: Acute Comment Review of Relevant I have reviewed the following items fay (where applicable) has been applied. Medications: Current Medications Medications (Trade) Dose Ordered Sig/Cristian Route PRN Reason Start Time Stop Time Status Last Admin Dose Admin Sodium Chloride 1,000 ml @ 1,000 mls/hr 1X ONCE IV 11/30/21 11:15 11/30/21 12:14 DC 11/30/21 11:35 Heparin Sodium/ Dextrose 250 ml @ 7.368 mls/ hr CONT PRN IV PER PROTOCOL 11/30/21 12:45 11/30/21 14:56 DC 11/30/21 13:50 Heparin Sodium (Porcine) (Heparin Sodium) 4,000 unit 1X ONCE IV 11/30/21 13:15 11/30/21 13:16 DC 11/30/21 13:50 Sodium Chloride 1,000 ml @ 75 mls/hr 1X ONCE IV 11/30/21 13:30 12/01/21 02:50 DC 11/30/21 13:52 Iohexol (Omnipaque 350 Mg/ml) 75 ml 1X ONCE IV 11/30/21 13:45 11/30/21 13:46 DC 11/30/21 14:10 Heparin Sodium/ Dextrose 250 ml @ 9.824 mls/ hr CONT PRN IV PER PROTOCOL 11/30/21 15:00 11/30/21 15:04 Methylprednisolone Sodium Succinate (SOLU-Medrol 40MG VIAL) 40 mg Q12HR IV 11/30/21 17:00 11/30/21 19:23 Justifications for Admission Other Justification RUSSELL SNOW MD Dec 01, 2021 09:04
[2021-12-01 11:00] VITALS: BP 137/83
--- NOTE | 2021-12-01 11:26 | CONS ---
DATE OF CONSULTATION: 12/01/2021 REASON FOR CONSULTATION: Pulmonary embolism, COVID-19. ATTENDING PHYSICIAN: Abel Padilla DO. HISTORY OF PRESENT ILLNESS: The patient is a pleasant 81-year-old male who received 2 COVID vaccines, last one was 9 months ago. He presented to the hospital after having some chest discomfort and mildly shortness of breath. Although, he denies these symptoms now. He said he felt lightheaded and dizzy. His systolic blood pressure was 70. He had a troponin elevation of 322 and went up to 981. His D-dimer was elevated. The patient underwent CT angiogram, which was reviewed by me. There is evidence of pulmonary embolism with filling defect in the right main pulmonary arterial trunk extending into the right upper, right middle and right lower lobe pulmonary arteries. There is also filling defects in the left lower lobe and left lingular distal pulmonary arteries. There were multiple tiny lung nodules, 6 mm nodule in the left apex. There were other tiny lung nodules in the right middle and right lower lobe of the lungs. There was some linear atelectasis in the right middle lobe. The patient denies any malignancies. I have been asked to see him for further evaluation. He is clinically doing well. He has no headache, no nausea, vomiting, no diarrhea. He is currently on room air. PAST MEDICAL HISTORY: Significant for history of COVID-19. He did receive 2 vaccines, last one was 9 months ago. History of hernia repair. PAST SURGICAL HISTORY: Hernia repair. ALLERGIES: None. MEDICATIONS: Reviewed as listed in the MRAD including heparin per protocol and IV Solu-Medrol. REVIEW OF SYSTEMS: Twelve-point review of system obtained. Pertinent positives discussed in my present illness, otherwise noncontributory. All systems that were negative were reviewed as well. FAMILY HISTORY: Noncontributory to lungs. SOCIAL HISTORY: Denies any tobacco use. PHYSICAL EXAMINATION: VITAL SIGNS: Reviewed. Blood pressure 117 systolic. Afebrile, pulse ox 91% on room air. GENERAL: Visual exam done due to COVID-19. No paradoxical breathing. No skin rash. EXTREMITIES: No leg edema. LABORATORY DATA: Reviewed. White cell count 4.5, hemoglobin 13.4 and platelets are 216. BUN 16, creatinine 1.2. AST, ALT elevated. IMPRESSION: 1. Acute pulmonary embolism in a patient who is diagnosed with COVID, can present as a hypercoagulable state and appears to be most likely etiology of his pulmonary embolism. We also need to rule out any occult malignancy since he has tiny lung nodules on a CT chest. 2. No significant tobacco use. 3. The patient with 2 vaccinations for COVID-19, last one 9 months ago[address] 4[address] chest with pulmonary embolism as discussed above, but in addition, he has bilateral lung nodules, largest being 6 mm in size. He needs to have metastatic workup. 5. Increased transaminases, likely secondary to COVID-19. RECOMMENDATIONS: 1. Continue with present heparin per protocol. 2. May switch to Eliquis soon. 3. Venous Dopplers of lower extremities. 4. We will require minimum of 3-6 months of anticoagulation. 5. IV Solu-Medrol. 6. CT abdomen and pelvis to rule out any occult malignancy. 7. Discussed with Dr. Rodríguez. We will follow along with you. RYAN DR: DYLAN/kelin TID: [id number]
--- NOTE | 2021-12-01 13:24 | RAD ---
Exam: US BILATERAL LOWEREXTREMITY VENOUS DOPPLER Indication: BLE PAIN, HX OF PE, COVID POSITIVE Technique: Color-flow and pulsed wave duplex ultrasound with compression of venous structures of th e bilateral lower extremities. Comparison: None Available. Findings: Left: Partially occlusive thrombus extending from the common femoral vein through the superficial fem oral vein and into the popliteal vein. Occlusive thrombus in the peroneal veins. Right: Duplex ultrasound with compression of the deep venous structures of the right lower extremity from the common femoral vein through the popliteal vein is negative for DVT. The posterior tibial and peroneal veins are segmentally visualized and patent where seen. Normal venous waveforms and augment ation are noted throughout. Impression: Left lower extremity is positive for DVT Electronically signed by: Roc Aguilar MD (12/01/2021 1:22 PM) [id number]
[2021-12-01 14:40] VITALS: BP 117/70
[2021-12-01 19:05] VITALS: BP 133/73
--- NOTE | 2021-12-01 22:48 | RAD ---
Exam: CT of abdomen and pelvis without contrast INDICATION: Lymphadenopathy, concern for mass TECHNIQUE: Sequential axial images through the abdomen and pelvis obtained without IV contrast. Sagit blayne and coronal reformatted images were reconstructed from the axial data and reviewed. Exposure: One or more of the following in the visualized dose reduction techniques were utilized for this examination: 1. Automated exposure control 2. Adjustment of the MA and/or KV according to patient size 3. Use of iterative of reconstructive technique Comparisons: None FINDINGS: Heart size is normal. No pericardial effusion. Visualized lung bases are clear. No pleural effusion. Evaluation of solid organs limited secondary to noncontrast technique. Liver, spleen, pancreas, and adrenals are unremarkable. Gallbladder is partially distended. No perinephric inflammation or hydronephrosis. No renal or ureteral calculi are identified. Bladder is partially distended and not well evaluated. Prostate is not enlarged. Large and small bowel are unremarkable. Appendix is normal. No free intra-abdominal air or fluid. No obstruction. Abdominal aorta has normal course and caliber. No enlarged intra-abdominal lymph nodes are identified. No suspicious osseous lesions or acute fractures. IMPRESSION: No acute process identified in the abdomen or pelvis. No convincing evidence for mass. Electronically signed by: Agustin Ngo MD (12/01/2021 10:46 PM) [facility]
[2021-12-01 23:00] VITALS: BP 139/84
[2021-12-02 03:10] VITALS: BP 174/88
[2021-12-02 05:41] LABS: ALBUMIN 3.1 g/dL (3.4-5.0); ALBUMIN/GLOBULIN RATIO 0.8 (1.0-1.7); CALCIUM 8.3 mg/dL (8.5-10.1); POTASSIUM 3.8 mmol/L (3.5-5.1); TOTAL BILIRUBIN 0.3 mg/dL (0.2-1.0); TOTAL PROTEIN 6.9 g/dL (6.4-8.2)
[2021-12-02 05:42] LABS: HEMOGLOBIN A1C 5.7 % (4.8-5.6)
[2021-12-02 07:00] VITALS: BP 185/81
--- NOTE | 2021-12-02 09:34 | PDOC ---
PULMONARY PROGRESS NOTES DATE: 12/02/21 TIME: 09:31 Subjective Patient is doing well. Denies any shortness of breath or chest pain. Vitals Vital Signs Date Time Temp Pulse Resp B/P (MAP) Pulse Ox O2 Delivery O2 Flow Rate FiO2 12/02/21 03:10 97.4 97 18 174/88 (116) 95 Room Air 97.4 12/01/21 08:00 2.0 General: Alert, No acute distress Lungs: Clear Cardiovascular: S1 Abdomen: Soft Neuro Exam: Alert Extremities: No Edema Skin: Warm Labs Laboratory Tests Test 11/30/21 11:20 11/30/21 12:30 11/30/21 14:00 11/30/21 19:40 White Blood Count 8.2 x10^3/uL (4.0-11.0) Red Blood Count 4.60 x10^6/uL (4.30-5.70) Hemoglobin 14.1 g/dL (13.0-17.5) Hematocrit 43.8 % (39.0-53.0) Mean Corpuscular Volume 95 fL (79-100) Mean Corpuscular Hemoglobin 31 pg (25-35) Mean Corpuscular Hemoglobin Concent 32 g/dL (31-37) Red Cell Distribution Width 14.7 % (11.5-14.5) Platelet Count 203 x10^3/uL (140-400) Neutrophils (%) (Auto) 47 % (31-73) Lymphocytes (%) (Auto) 45 % (24-48) Monocytes (%) (Auto) 5 % (0-9) Eosinophils (%) (Auto) 2 % (0-3) Basophils (%) (Auto) 1 % (0-3) Neutrophils # (Auto) 3.9 x10^3/uL (1.8-7.7) Lymphocytes # (Auto) 3.7 x10^3/uL (1.0-4.8) Monocytes # (Auto) 0.4 x10^3/uL (0.0-1.1) Eosinophils # (Auto) 0.2 x10^3/uL (0.0-0.7) Basophils # (Auto) 0.0 x10^3/uL (0.0-0.2) Erythrocyte Sedimentation Rate 3 (0-15) Sodium Level 140 mmol/L (136-145) Potassium Level 3.5 mmol/L (3.5-5.1) Chloride Level 102 mmol/L (98-107) Carbon Dioxide Level 20 mmol/L (21-32) Anion Gap 18 (6-14) Blood Urea Nitrogen 15 mg/dL (8-26) Creatinine 1.6 mg/dL (0.7-1.3) Estimated GFR (Cockcroft-Gault) 50.6 Glucose Level 278 mg/dL (70-99) Calcium Level 8.4 mg/dL (8.5-10.1) Magnesium Level 2.6 mg/dL (1.8-2.4) Total Bilirubin 0.6 mg/dL (0.2-1.0) Direct Bilirubin 0.2 mg/dL (0.0-0.2) Aspartate Amino Transf (AST/SGOT) 476 U/L (15-37) Alanine Aminotransferase (ALT/SGPT) 310 U/L (16-63) Alkaline Phosphatase 178 U/L (46-116) Troponin I High Sensitivity 322 ng/L (4-75) 981 ng/L (4-75) 2561 ng/L (4-75) Total Protein 7.2 g/dL (6.4-8.2) Albumin 2.8 g/dL (3.4-5.0) Influenza Type A Antigen Negative (NEGATIVE) Influenza Type B Antigen Negative (NEGATIVE) SARS-CoV-2 Antigen (Rapid) Positive (NEGATIVE) Prothrombin Time 15.5 SEC (11.7-14.0) Prothromb Time International Ratio 1.2 (0.8-1.1) Activated Partial Thromboplast Time 26 SEC (24-38) D-Dimer (Heike) > 20.00 ug/mlFEU Heparin Anti-Xa Act, Unfractionated 0.52 IU/mL (0.30-0.70) Test 12/01/21 03:15 12/02/21 04:30 White Blood Count 4.5 x10^3/uL (4.0-11.0) Red Blood Count 4.42 x10^6/uL (4.30-5.70) Hemoglobin 13.4 g/dL (13.0-17.5) Hematocrit 40.3 % (39.0-53.0) Mean Corpuscular Volume 91 fL (79-100) Mean Corpuscular Hemoglobin 30 pg (25-35) Mean Corpuscular Hemoglobin Concent 33 g/dL (31-37) Red Cell Distribution Width 14.7 % (11.5-14.5) Platelet Count 216 x10^3/uL (140-400) Heparin Anti-Xa Act, Unfractionated 0.47 IU/mL (0.30-0.70) 0.56 IU/mL (0.30-0.70) Sodium Level 140 mmol/L (136-145) 141 mmol/L (136-145) Potassium Level 4.2 mmol/L (3.5-5.1) 3.8 mmol/L (3.5-5.1) Chloride Level 107 mmol/L (98-107) 107 mmol/L (98-107) Carbon Dioxide Level 23 mmol/L (21-32) 23 mmol/L (21-32) Anion Gap 10 (6-14) 11 (6-14) Blood Urea Nitrogen 16 mg/dL (8-26) 20 mg/dL (8-26) Creatinine 1.2 mg/dL (0.7-1.3) 1.0 mg/dL (0.7-1.3) Estimated GFR (Cockcroft-Gault) 70.5 87.0 BUN/Creatinine Ratio 13 (6-20) 20 (6-20) Glucose Level 120 mg/dL (70-99) 112 mg/dL (70-99) Hemoglobin A1c 5.7 % (4.8-5.6) Calcium Level 8.1 mg/dL (8.5-10.1) 8.3 mg/dL (8.5-10.1) Total Bilirubin 0.3 mg/dL (0.2-1.0) 0.3 mg/dL (0.2-1.0) Aspartate Amino Transf (AST/SGOT) 420 U/L (15-37) 147 U/L (15-37) Alanine Aminotransferase (ALT/SGPT) 397 U/L (16-63) 249 U/L (16-63) Alkaline Phosphatase 188 U/L (46-116) 159 U/L (46-116) Troponin I High Sensitivity 2056 ng/L (4-75) Total Protein 7.3 g/dL (6.4-8.2) 6.9 g/dL (6.4-8.2) Albumin 3.0 g/dL (3.4-5.0) 3.1 g/dL (3.4-5.0) Albumin/Globulin Ratio 0.7 (1.0-1.7) 0.8 (1.0-1.7) Triglycerides Level 33 mg/dL (0-150) Cholesterol Level 162 mg/dL (0-200) LDL Cholesterol, Calculated 105 mg/dL (0-100) VLDL Cholesterol, Calculated 7 mg/dL (0-40) Non-HDL Cholesterol Calculated 112 mg/dL (0-129) HDL Cholesterol 50 mg/dL (40-60) Cholesterol/HDL Ratio 3.2 Thyroid Stimulating Hormone (TSH) 0.330 uIU/mL (0.358-3.74) Laboratory Tests Test 12/02/21 04:30 Heparin Anti-Xa Act, Unfractionated 0.56 IU/mL (0.30-0.70) Sodium Level 141 mmol/L (136-145) Potassium Level 3.8 mmol/L (3.5-5.1) Chloride Level 107 mmol/L (98-107) Carbon Dioxide Level 23 mmol/L (21-32) Anion Gap 11 (6-14) Blood Urea Nitrogen 20 mg/dL (8-26) Creatinine 1.0 mg/dL (0.7-1.3) Estimated GFR (Cockcroft-Gault) 87.0 BUN/Creatinine Ratio 20 (6-20) Glucose Level 112 mg/dL (70-99) Calcium Level 8.3 mg/dL (8.5-10.1) Total Bilirubin 0.3 mg/dL (0.2-1.0) Aspartate Amino Transf (AST/SGOT) 147 U/L (15-37) Alanine Aminotransferase (ALT/SGPT) 249 U/L (16-63) Alkaline Phosphatase 159 U/L (46-116) Total Protein 6.9 g/dL (6.4-8.2) Albumin 3.1 g/dL (3.4-5.0) Albumin/Globulin Ratio 0.8 (1.0-1.7) Medications Active Scripts Medications Dose Route/Sig Max Daily Dose Days Date Category Impression . 1. Acute pulmonary embolism in a patient who is diagnosed with COVID, can present as a hypercoagulable state and appears to be most likely etiology of his pulmonary embolism. We also need to rule out any occult malignancy since he has tiny lung nodules on a CT chest. No acute process in CT abdomen and pelvis 2. No significant tobacco use. 3. The patient with 2 vaccinations for COVID-19, last one 9 months ago. 4. Ab[address] chest with pulmonary embolism as discussed above, but in addition, he has bilateral lung nodules, largest being 6 mm in size. He needs to have metastatic workup. 5. Increased transaminases, likely secondary to COVID-19. 6. Left lower extremity DVT. Plan . 1. Patient is clinically doing well. Remains on room air. 2. Can discontinue heparin and initiate Eliquis. 3. Venous Dopplers of lower extremities positive for left lower extremity DVT. 4. We will require minimum of 3-6 months of anticoagulation. 5. IV Solu-Medrol. 6. CT abdomen and pelvis without any occult malignancy. 7. Discussed with Dr. Rodríguez. We will follow along with you. OZ NESBITT MD Dec 02, 2021 09:34
[2021-12-02] MEDS: ASPIRIN ENTERIC COATED 81 MG TABLET.DR. PO SCH (09:57)
[2021-12-02] MEDS: MULTIVITAMIN with MINERAL TABLET. PO SCH (09:57)
[2021-12-02] MEDS: methylPREDNISolone SOD SUCC PF 40 MG/ML VIAL. IV SCH ×2 (09:57→20:58)
[2021-12-02 11:00] VITALS: BP 161/81
--- NOTE | 2021-12-02 11:50 | PDOC ---
[facility] PROGRESS NOTE Date of Service DOS: DATE: 12/02/21 TIME: 11:20 Chief Complaint Chief Complaint Acute Pulmonary embolism - right main pulmonary artery and upper lobe middle lobe and lower lobe also the left lower lobe left lingula. Lung nodules - left upper lobe 6 mm lung and scattered right middle and right lower lobe subcentimeter Chest pain - likely due to PE, improved NSTEMI - likely demand ischemia from PE, possibly some myocardial strain related to COVID 19 Covid-19 ERLINDA - likely vasomotor nephropathy from PE and COVID 19 vs CKD Hypotension - likely hypovolemic shock, responded well to fluids Hyperglycemia - Anion gap metabolic acidosis History of Present Illness History of Present Illness Mr Chawla is an 81 yo male w/ no significant PMHx who presents to ED via EMS on 11/30/2021 c/o sudden onset chest pain that woke him up, lasting 30 minutes. Also noted being cold with associated dyspnea and some myalgias. Notably hypotensive enroute with SBP 60s-70s. He did not c/o abdominal pain or nausea or vomiting. Labs with WBC 8.2, Hb 14.1, platelets 203, NA 140, K3.5, BUN 15, CR 1.6, glucose 278, D-dimer greater than 20, INR 1.2, rapid influenza negative, rapid COVID-19 positive, high-sensitivity troponin is 322 and on repeat is 981, albumin 2.8, bilirubin 0.6, AST 476, ALT 310, alkaline phosphatase 178 EKG sinus tachycardia with RBBB. CTPA revealed right main pulmonary artery pulmonary embolism with distal emboli bilaterally. Admitted for further care on heparin GTT. Cardiology and Pulmonology were consulted in the ED. 12/01: Chest pain resolved. Currently not hypoxic. Discussed with pulmonology who will continue anticoagulation with heparin and transition to Eliquis after he had CT abdomen pelvis to assess for potential underlying malignancy. 12/02: Venous Doppler positive for extensive left lower extremity DVT. CT abdomen pelvis with no concerning mass. Discussed with pulmonology will transition from heparin to Eliquis therapy today and likely discharge in next 24 hours. no shortness of breath or chest pain Vitals/I&O Vitals/I&O: Vital Signs Date Time Temp Pulse Resp B/P (MAP) Pulse Ox O2 Delivery O2 Flow Rate FiO2 12/02/21 08:00 Room Air 2.0 12/02/21 07:00 96.3 70 18 185/81 (115) 97 96.3 I & O 12/01/21 12/01/21 12/02/21 15:00 23:00 07:00 Intake Total 117.6 ml Output Total 400 ml 700 ml 150 ml Balance -400 ml -700 ml -32.4 ml Physical Exam General: Alert, Oriented X3, Cooperative, No acute distress Heart: Regular rate (Sinus tachycardia), Normal S1, Normal S2, No murmurs Lungs: Clear Abdomen: Soft, No tenderness Extremities: No cyanosis, No edema Skin: No breakdown, No significant lesion Labs Labs: Laboratory Tests Test 12/02/21 04:30 Heparin Anti-Xa Act, Unfractionated 0.56 IU/mL (0.30-0.70) Sodium Level 141 mmol/L (136-145) Potassium Level 3.8 mmol/L (3.5-5.1) Chloride Level 107 mmol/L (98-107) Carbon Dioxide Level 23 mmol/L (21-32) Anion Gap 11 (6-14) Blood Urea Nitrogen 20 mg/dL (8-26) Creatinine 1.0 mg/dL (0.7-1.3) Estimated GFR (Cockcroft-Gault) 87.0 BUN/Creatinine Ratio 20 (6-20) Glucose Level 112 mg/dL (70-99) Calcium Level 8.3 mg/dL (8.5-10.1) Total Bilirubin 0.3 mg/dL (0.2-1.0) Aspartate Amino Transf (AST/SGOT) 147 U/L (15-37) Alanine Aminotransferase (ALT/SGPT) 249 U/L (16-63) Alkaline Phosphatase 159 U/L (46-116) Total Protein 6.9 g/dL (6.4-8.2) Albumin 3.1 g/dL (3.4-5.0) Albumin/Globulin Ratio 0.8 (1.0-1.7) Assessment and Plan Assessmemt and Plan Problems Medical Problems: (1) COVID-19 Status: Acute (2) Pulmonary embolus Status: Acute Comment Review of Relevant I have reviewed the following items fay (where applicable) has been applied. Justifications for Admission Other Justification RUSSELL SNOW MD Dec 02, 2021 11:50
[2021-12-02] MEDS: APIXABAN 5 MG TABLET. PO SCH ×2 (12:16→20:58)
[2021-12-02 15:00] VITALS: BP 143/70
--- NOTE | 2021-12-02 16:16 | PDOC ---
CARDIOLOGY PROGRESS NOTE SUBJECTIVE: Denies any chest pain. Patient is overall feeling well. OBJECTIVE: Vital Signs/I&O: Vital Signs Date Time Temp Pulse Resp B/P (MAP) Pulse Ox O2 Delivery O2 Flow Rate FiO2 12/02/21 11:00 97.4 73 18 161/81 (107) 99 Room Air 97.4 12/02/21 08:00 2.0 I & O 12/01/21 12/01/21 12/02/21 15:00 23:00 07:00 Intake Total 117.6 ml Output Total 400 ml 700 ml 150 ml Balance -400 ml -700 ml -32.4 ml Objective: The patient appeared well nourished and normally developed. Head exam is unremarkable. No scleral icterus or corneal arcus noted. Neck is without jugular venous distension, thyromegaly, or carotid bruits. Carotid upstrokes are brisk bilaterally. Lungs are clear to auscultation and percussion. Cardiac exam reveals the PMI to be normally sized and situated. Rhythm is regular. First and second heart sounds normal. No murmurs, rubs or gallops. Abdominal exam reveals normal bowel sounds, no masses, no organomegaly and no aortic enlargement. Extremities are nonedematous and both femoral and pedal pulses are normal. Msk: No traumua Neuro: No focal deficits CURRENT MEDICATIONS: Current Medications Medications (Trade) Dose Ordered Sig/Cristian Route PRN Reason Start Time Stop Time Status Last Admin Dose Admin Apixaban (Eliquis) 10 mg BID PO 12/02/21 12:00 12/08/21 21:01 12/02/21 12:16 DIAGNOSTIC TESTING: No new diagnostic studies Labs: Laboratory Tests 12/02/21 04:30 Laboratory Tests Test 12/02/21 04:30 Heparin Anti-Xa Act, Unfractionated 0.56 IU/mL (0.30-0.70) Sodium Level 141 mmol/L (136-145) Potassium Level 3.8 mmol/L (3.5-5.1) Chloride Level 107 mmol/L (98-107) Carbon Dioxide Level 23 mmol/L (21-32) Anion Gap 11 (6-14) Blood Urea Nitrogen 20 mg/dL (8-26) Creatinine 1.0 mg/dL (0.7-1.3) Estimated GFR (Cockcroft-Gault) 87.0 BUN/Creatinine Ratio 20 (6-20) Glucose Level 112 mg/dL (70-99) H Calcium Level 8.3 mg/dL (8.5-10.1) L Total Bilirubin 0.3 mg/dL (0.2-1.0) Aspartate Amino Transf (AST/SGOT) 147 U/L (15-37) H Alkaline Phosphatase 159 U/L (46-116) H Total Protein 6.9 g/dL (6.4-8.2) Albumin 3.1 g/dL (3.4-5.0) L Albumin/Globulin Ratio 0.8 (1.0-1.7) L ASSESSMENT: 1. Chest pain: none further 2. NSTEMI in the setting of covid-19 and pulmonary embolus 3. Covid-19 4. ERLINDA vs CKD 5. Hypotension: BP better after IVF PLAN: 1. Agree with initiation of Eliquis therapy. 2. Clinically the patient is doing well and no clear evidence of any acute cardiac ischemia. Supportive care. Follow-up with an outpatient echocardiogram and consider stress testing. Thank you for this consultation. Justicifation of Admission Dx: Justifications for Admission: Justification of Admission Dx: N/A JOHNY BROWER MD Dec 02, 2021 16:16
[2021-12-02 19:20] VITALS: BP 145/81
[2021-12-02 23:50] VITALS: BP 138/86
[2021-12-03 03:50] VITALS: BP 178/95
[2021-12-03 05:33] LABS: HEMATOCRIT 42.6 % (39.0-53.0); HEMOGLOBIN 14.1 g/dL (13.0-17.5); RED BLOOD COUNT 4.73 x10^6/uL (4.30-5.70); RED CELL DISTRIBUTION WIDTH 14.6 % (11.5-14.5); WHITE BLOOD COUNT 7.1 x10^3/uL (4.0-11.0)
[2021-12-03 05:52] LABS: ALBUMIN 3.3 g/dL (3.4-5.0); ALBUMIN/GLOBULIN RATIO 0.7 (1.0-1.7); CALCIUM 8.7 mg/dL (8.5-10.1); POTASSIUM 3.8 mmol/L (3.5-5.1); TOTAL BILIRUBIN 0.4 mg/dL (0.2-1.0); TOTAL PROTEIN 7.9 g/dL (6.4-8.2)
[2021-12-03 07:00] VITALS: BP 169/93
[2021-12-03] MEDS: ASPIRIN ENTERIC COATED 81 MG TABLET.DR. PO SCH (09:06)
[2021-12-03] MEDS: methylPREDNISolone SOD SUCC PF 40 MG/ML VIAL. IV SCH ×2 (09:06→19:37)
[2021-12-03] MEDS: APIXABAN 5 MG TABLET. PO SCH ×2 (09:07→19:36)
[2021-12-03] MEDS: MULTIVITAMIN with MINERAL TABLET. PO SCH (09:07)
[2021-12-03] MEDS ORDERED: APIX5TAB PO (10:09)
[2021-12-03] MEDS ORDERED: ASPI-886 PO (10:09)
--- NOTE | 2021-12-03 10:12 | PDOC3 ---
[facility]-Discharge Summary Date of Admission: Date of Admission: Nov 30, 2021 Date of Discharge: Date of Discharge: Dec 03, 2021 Admission Diagnosis: Problems: (1) Pulmonary embolus Hospital Course: Hospital Course: Chief Complaint Acute Pulmonary embolism - right main pulmonary artery and upper lobe middle lobe and lower lobe also the left lower lobe left lingula. Lung nodules - left upper lobe 6 mm lung and scattered right middle and right lower lobe subcentimeter Chest pain - likely due to PE, improved NSTEMI - likely demand ischemia from PE, possibly some myocardial strain related to COVID 19 Covid-19 ERLINDA - likely vasomotor nephropathy from PE and COVID 19 vs CKD Hypotension - likely hypovolemic shock, responded well to fluids Hyperglycemia - Anion gap metabolic acidosis History of Present Illness History of Present Illness Mr Chawla is an 81 yo male w/ no significant PMHx who presents to ED via EMS on 11/30/2021 c/o sudden onset chest pain that woke him up, lasting 30 minutes. Also noted being cold with associated dyspnea and some myalgias. Notably hypotensive enroute with SBP 60s-70s. He did not c/o abdominal pain or nausea or vomiting. Labs with WBC 8.2, Hb 14.1, platelets 203, NA 140, K3.5, BUN 15, CR 1.6, glucose 278, D-dimer greater than 20, INR 1.2, rapid influenza negative, rapid COVID-19 positive, high-sensitivity troponin is 322 and on repeat is 981, albumin 2.8, bilirubin 0.6, AST 476, ALT 310, alkaline phosphatase 178 EKG sinus tachycardia with RBBB. CTPA revealed right main pulmonary artery pulmonary embolism with distal emboli bilaterally. Admitted for further care on heparin GTT. Cardiology and Pulmonology were consulted in the ED. 12/01: Chest pain resolved. Currently not hypoxic. Discussed with pulmonology who will continue anticoagulation with heparin and transition to Eliquis after he had CT abdomen pelvis to assess for potential underlying malignancy. 12/02: Venous Doppler positive for extensive left lower extremity DVT. CT abdomen pelvis with no concerning mass. Discussed with pulmonology will transition from heparin to Eliquis therapy today and likely discharge in next 24 hours. no shortness of breath or chest pain 12/03 Patient evaluated examined at bedside. He was walking around his room. No complaints to me. Pretty eager for discharge. Explained importance of adherence with Eliquis and again educated on the loading dose and maintenance dosing. He understood this. Covid positive but pretty asymptomatic recommend t hat he quarantine. Greater than 30 minutes spent on this discharge. Disposition: Disposition/Orders: D/C to Home Activity: Activity: Resume previous activity Diet: Diet: Regular Medications: Home Meds Active Scripts Aspirin (ASPIRIN EC) 81 Mg Tablet.dr, 81 MG PO DAILYWBKFT for pe for 90 Days, #90 TAB.SR Prov:RUSSELL CERVANTES MD 12/03/21 Apixaban (ELIQUIS) 5 Mg Tablet, 10 MG PO BID for pe for 5 Days, #20 TAB Prov:RUSSELL CERVANTES MD 12/03/21 Apixaban (ELIQUIS) 5 Mg Tablet, 5 MG PO BID for pe for 90 Days, #180 TAB Prov:RUSSELL CERVANTES MD 12/03/21 Scheduled Apixaban (Eliquis), 5 MG PO BID Apixaban (Eliquis), 10 MG PO BID Aspirin (Aspirin Ec), 81 MG PO DAILYWBKFT Justicifation of Admission Dx: Justifications for Admission: Justification of Admission Dx: N/A RUSSELL CERVANTES MD Dec 03, 2021 10:12
--- NOTE | 2021-12-03 10:16 | PDOC ---
PULMONARY PROGRESS NOTES DATE: 12/03/21 TIME: 10:13 Subjective Patient is doing well seen sitting in the chair on room air. Denies any shortness of breath or chest pain. Vitals Vital Signs Date Time Temp Pulse Resp B/P (MAP) Pulse Ox O2 Delivery O2 Flow Rate FiO2 12/03/21 07:00 98.1 80 20 169/93 (118) 98 Room Air 98.1 12/02/21 08:00 2.0 General: Alert, No acute distress Lungs: Clear Cardiovascular: S1 Abdomen: Soft Neuro Exam: Alert Extremities: No Edema Skin: Warm Labs Laboratory Tests Test 12/02/21 04:30 12/03/21 05:10 Heparin Anti-Xa Act, Unfractionated 0.56 IU/mL (0.30-0.70) Sodium Level 141 mmol/L (136-145) 143 mmol/L (136-145) Potassium Level 3.8 mmol/L (3.5-5.1) 3.8 mmol/L (3.5-5.1) Chloride Level 107 mmol/L (98-107) 106 mmol/L (98-107) Carbon Dioxide Level 23 mmol/L (21-32) 23 mmol/L (21-32) Anion Gap 11 (6-14) 14 (6-14) Blood Urea Nitrogen 20 mg/dL (8-26) 19 mg/dL (8-26) Creatinine 1.0 mg/dL (0.7-1.3) 1.0 mg/dL (0.7-1.3) Estimated GFR (Cockcroft-Gault) 87.0 87.0 BUN/Creatinine Ratio 20 (6-20) 19 (6-20) Glucose Level 112 mg/dL (70-99) 127 mg/dL (70-99) Calcium Level 8.3 mg/dL (8.5-10.1) 8.7 mg/dL (8.5-10.1) Total Bilirubin 0.3 mg/dL (0.2-1.0) 0.4 mg/dL (0.2-1.0) Aspartate Amino Transf (AST/SGOT) 147 U/L (15-37) 92 U/L (15-37) Alanine Aminotransferase (ALT/SGPT) 249 U/L (16-63) 226 U/L (16-63) Alkaline Phosphatase 159 U/L (46-116) 157 U/L (46-116) Total Protein 6.9 g/dL (6.4-8.2) 7.9 g/dL (6.4-8.2) Albumin 3.1 g/dL (3.4-5.0) 3.3 g/dL (3.4-5.0) Albumin/Globulin Ratio 0.8 (1.0-1.7) 0.7 (1.0-1.7) White Blood Count 7.1 x10^3/uL (4.0-11.0) Red Blood Count 4.73 x10^6/uL (4.30-5.70) Hemoglobin 14.1 g/dL (13.0-17.5) Hematocrit 42.6 % (39.0-53.0) Mean Corpuscular Volume 90 fL (79-100) Mean Corpuscular Hemoglobin 30 pg (25-35) Mean Corpuscular Hemoglobin Concent 33 g/dL (31-37) Red Cell Distribution Width 14.6 % (11.5-14.5) Platelet Count 314 x10^3/uL (140-400) Laboratory Tests Test 12/03/21 05:10 White Blood Count 7.1 x10^3/uL (4.0-11.0) Red Blood Count 4.73 x10^6/uL (4.30-5.70) Hemoglobin 14.1 g/dL (13.0-17.5) Hematocrit 42.6 % (39.0-53.0) Mean Corpuscular Volume 90 fL (79-100) Mean Corpuscular Hemoglobin 30 pg (25-35) Mean Corpuscular Hemoglobin Concent 33 g/dL (31-37) Red Cell Distribution Width 14.6 % (11.5-14.5) Platelet Count 314 x10^3/uL (140-400) Sodium Level 143 mmol/L (136-145) Potassium Level 3.8 mmol/L (3.5-5.1) Chloride Level 106 mmol/L (98-107) Carbon Dioxide Level 23 mmol/L (21-32) Anion Gap 14 (6-14) Blood Urea Nitrogen 19 mg/dL (8-26) Creatinine 1.0 mg/dL (0.7-1.3) Estimated GFR (Cockcroft-Gault) 87.0 BUN/Creatinine Ratio 19 (6-20) Glucose Level 127 mg/dL (70-99) Calcium Level 8.7 mg/dL (8.5-10.1) Total Bilirubin 0.4 mg/dL (0.2-1.0) Aspartate Amino Transf (AST/SGOT) 92 U/L (15-37) Alanine Aminotransferase (ALT/SGPT) 226 U/L (16-63) Alkaline Phosphatase 157 U/L (46-116) Total Protein 7.9 g/dL (6.4-8.2) Albumin 3.3 g/dL (3.4-5.0) Albumin/Globulin Ratio 0.7 (1.0-1.7) Medications Active Scripts Medications Dose Route/Sig Max Daily Dose Days Date Category Impression . 1. Acute pulmonary embolism in a patient who is diagnosed with COVID, can present as a hypercoagulable state and appears to be most likely etiology of his pulmonary embolism. We also need to rule out any occult malignancy since he has tiny lung nodules on a CT chest. No acute process in CT abdomen and pelvis 2. No significant tobacco use. 3. The patient with 2 vaccinations for COVID-19, last one 9 months ago. 4. Ab[address] chest with pulmonary embolism as discussed above, but in addition, he has bilateral lung nodules, largest being 6 mm in size. He needs to have metastatic workup. 5. Increased transaminases, likely secondary to COVID-19. 6. Left lower extremity DVT. Plan . 1. Patient is clinically doing well. Remains on room air. 2. started Eliquis 3. Venous Dopplers of lower extremities positive for left lower extremity DVT. 4. We will require minimum of 3-6 months of anticoagulation. 5. IV Solu-Medrol, complete steroid taper 6. CT abdomen and pelvis without any occult malignancy. 7. Discussed with RN. We will follow along with you. OZ NESBITT MD Dec 03, 2021 10:16
--- NOTE | 2021-12-03 10:32 | PDOC ---
ANGELIA BUNCH RECYCLING ASSISTANT 12/03/21 1032: CARDIO Progress Notes Date and Time Date of Service 12/03/21 Time of Evaluation 1030 Subjective Subjective: No Chest Pain, No shortness of breath, No Palpitations Vitals Vitals Vital Signs Date Time Temp Pulse Resp B/P (MAP) Pulse Ox O2 Delivery O2 Flow Rate FiO2 12/03/21 07:00 98.1 80 20 169/93 (118) 98 Room Air 98.1 12/02/21 08:00 2.0 Weight Weight [ ] Input and Output Intake and Output Intake and Output 12/03/21 07:00 Intake Total 400 ml Balance 400 ml Intake Oral 400 ml # Voids 3 Laboratory Labs Laboratory Tests Test 12/03/21 05:10 White Blood Count 7.1 x10^3/uL (4.0-11.0) Red Blood Count 4.73 x10^6/uL (4.30-5.70) Hemoglobin 14.1 g/dL (13.0-17.5) Hematocrit 42.6 % (39.0-53.0) Mean Corpuscular Volume 90 fL (79-100) Mean Corpuscular Hemoglobin 30 pg (25-35) Mean Corpuscular Hemoglobin Concent 33 g/dL (31-37) Red Cell Distribution Width 14.6 % (11.5-14.5) Platelet Count 314 x10^3/uL (140-400) Sodium Level 143 mmol/L (136-145) Potassium Level 3.8 mmol/L (3.5-5.1) Chloride Level 106 mmol/L (98-107) Carbon Dioxide Level 23 mmol/L (21-32) Anion Gap 14 (6-14) Blood Urea Nitrogen 19 mg/dL (8-26) Creatinine 1.0 mg/dL (0.7-1.3) Estimated GFR (Cockcroft-Gault) 87.0 BUN/Creatinine Ratio 19 (6-20) Glucose Level 127 mg/dL (70-99) Calcium Level 8.7 mg/dL (8.5-10.1) Total Bilirubin 0.4 mg/dL (0.2-1.0) Aspartate Amino Transf (AST/SGOT) 92 U/L (15-37) Alanine Aminotransferase (ALT/SGPT) 226 U/L (16-63) Alkaline Phosphatase 157 U/L (46-116) Total Protein 7.9 g/dL (6.4-8.2) Albumin 3.3 g/dL (3.4-5.0) Albumin/Globulin Ratio 0.7 (1.0-1.7) Physical Exam HEENT: Neck Supple W Full Motion Chest: Symmetric LUNGS: Clear to Auscultation Heart: RRR (heart tones regular. Off tele) Abdomen: Soft N/T Extremities: No Edema Neurology: alert, follow commands Assessment Assessment 1. Chest pain, atypical: none further 2. NSTEMI; most probably type II, demand ischemia in the setting of COVID and acute PE 3. Covid-19 4. ERLINDA; resolved 5. Hypotension:resolved 6. Transaminitis Recommendations Eliquis therapy No statin with transaminitis Outpatient echocardiogram as arranged Follow up in our office with Dr. Smith has been arranged Consider outpatient ischemic evaluation Justicifation of Admission Dx: Justifications for Admission: Justification of Admission Dx: N/A JOHNY SMITH MD 12/04/21 0808: CARDIO Progress Notes Plan Plan Late entry for 12/03/2021 Patient seen and examined. I agree with above nurse practitioner note. Supportive care. ANGELIA BUNCH APRN Dec 03, 2021 10:32 JOHNY SMITH MD Dec 04, 2021 08:08
[2021-12-03 10:57] VITALS: BP 160/91
--- NOTE | 2021-12-03 12:35 | NUR ---
SS following for discharge planning. SS reviewed pt chart and discussed with pt RN. Pt is currently on room air. COVID19 positive. Pt pleasantly confused but wanting to go home. PT/OT ordered. Discharge order on the chart for home with self care. Pt on Eliquis. Pt lives at home alone and there are concerns for pt being able to care for himself at home. SS spoke with pt's son Servando, , pt's daughter, Robert Turk, , and pt's son Aniket, , via phone. Pt's family made aware that pt has a discharge order on the chart. Pt's family stated understanding that pt will not be agreeable to facility. Pt's son, Servando, reported that he will be in town tomorrow morning and will be able to stay with pt. Pt's family agreeable to home healthcare with no preference of company. Pt's sons and daughters to come up with plan of care for family assistance at home. Pt's son requested Dr. Shelton to contact him to discuss medications and recommendations. Dr. Shelton notified. Referral sent to [facility], ; fax [phone]. Home Healthcare orders requested. SS will continue to follow for discharge planning.
--- NOTE | 2021-12-03 12:37 | SNU/HH DC ---
DISCHARGE WITH HOME HEALTH DISCHARGE INFORMATION: Discharge Date: Dec 03, 2021 Final Diagnosis: Problems Medical Problems: (1) COVID-19 Status: Acute (2) Pulmonary embolus Status: Acute Condition on Discharge: Stable CODE STATUS: Code Status: Full HOME HEALTH: Face to Face: I certify this patient is under my care and that I, or a nurse practitioner or physician's occupational therapist assistant working with me, had a face to face encounter that meets the physician face to face encounter requirements with this patient on []. Senior Living For: Assess Cardiopulm Status, Assess & Educate Safety, Assess/Skilled Observatio RN For Eval/Treatment: Yes Physical Therapy For: Evalulation/Treatment Occupational Therapy For: Evaluation/Treatment Pt Meets Homebound Status: Poor coordination w/ amb., Frequent falls w/ injury, Limited distance walking, Poor cognition POST DISCHARGE ORDERS: Activity Instructions for Disc: Activity as tolerated Weight Bearing Status after Di: As tolerated DIET AFTER DISCHARGE: Cardiac Wound/Incision Care: Ice to area for comfort CHECKS AFTER DISCHARGE: Checks after discharge: Check blood press - daily, Check your Temp as needed CERTIFICATION STATEMENT: Certification Statement: Certification Statement: Based on the above finding, I certify that this patient is confined to the home and needs intermittent assisted care, physical therapy and/or speech therapy, or continues to need occupational therapy.~ This patient is under my care, and I have initiated the establishment of the plan of care.~ This patient will be followed by myself or a community physician who will periodically review the plan of care. Home Meds Active Scripts Aspirin (ASPIRIN EC) 81 Mg Tablet., 81 MG PO DAILYWBKFT for pe for 90 Days, #90 TAB.SR Prov:RUSSELL CERVANTES MD 12/03/21 Apixaban (ELIQUIS) 5 Mg Tablet, 10 MG PO BID for pe for 5 Days, #20 TAB Prov:RUSSELL CERVANTES MD 12/03/21 Apixaban (ELIQUIS) 5 Mg Tablet, 5 MG PO BID for pe for 90 Days, #180 TAB Prov:RUSSELL CERVANTES MD 12/03/21 RUSSELL CERVANTES MD Dec 03, 2021 12:37
[2021-12-03 14:00] VITALS: BP 130/87
[2021-12-03 19:45] VITALS: BP 124/66
[2021-12-03 23:05] VITALS: BP 150/75
[2021-12-04 03:20] VITALS: BP 160/82
[2021-12-04 07:00] VITALS: BP 145/75
[2021-12-04] MEDS: MULTIVITAMIN with MINERAL TABLET. PO SCH (08:38)
[2021-12-04] MEDS: APIXABAN 5 MG TABLET. PO SCH (08:38)
[2021-12-04] MEDS: ASPIRIN ENTERIC COATED 81 MG TABLET.DR. PO SCH (08:38)
[2021-12-04] MEDS: methylPREDNISolone SOD SUCC PF 40 MG/ML VIAL. IV SCH (08:39)
--- NOTE | 2021-12-04 09:34 | PDOC ---
PULMONARY PROGRESS NOTES DATE: 12/04/21 TIME: 09:34 Subjective Patient is doing well seen sitting in the chair on room air. Denies any shortness of breath or chest pain. Vitals Vital Signs Date Time Temp Pulse Resp B/P (MAP) Pulse Ox O2 Delivery O2 Flow Rate FiO2 12/04/21 07:00 98.2 57 18 145/75 (98) 97 Room Air 98.2 12/03/21 08:00 2.0 General: Alert, No acute distress Lungs: Clear Cardiovascular: S1 Abdomen: Soft Neuro Exam: Alert Extremities: No Edema Skin: Warm Labs Laboratory Tests Test 12/03/21 05:10 White Blood Count 7.1 x10^3/uL (4.0-11.0) Red Blood Count 4.73 x10^6/uL (4.30-5.70) Hemoglobin 14.1 g/dL (13.0-17.5) Hematocrit 42.6 % (39.0-53.0) Mean Corpuscular Volume 90 fL (79-100) Mean Corpuscular Hemoglobin 30 pg (25-35) Mean Corpuscular Hemoglobin Concent 33 g/dL (31-37) Red Cell Distribution Width 14.6 % (11.5-14.5) Platelet Count 314 x10^3/uL (140-400) Sodium Level 143 mmol/L (136-145) Potassium Level 3.8 mmol/L (3.5-5.1) Chloride Level 106 mmol/L (98-107) Carbon Dioxide Level 23 mmol/L (21-32) Anion Gap 14 (6-14) Blood Urea Nitrogen 19 mg/dL (8-26) Creatinine 1.0 mg/dL (0.7-1.3) Estimated GFR (Cockcroft-Gault) 87.0 BUN/Creatinine Ratio 19 (6-20) Glucose Level 127 mg/dL (70-99) Calcium Level 8.7 mg/dL (8.5-10.1) Total Bilirubin 0.4 mg/dL (0.2-1.0) Aspartate Amino Transf (AST/SGOT) 92 U/L (15-37) Alanine Aminotransferase (ALT/SGPT) 226 U/L (16-63) Alkaline Phosphatase 157 U/L (46-116) Total Protein 7.9 g/dL (6.4-8.2) Albumin 3.3 g/dL (3.4-5.0) Albumin/Globulin Ratio 0.7 (1.0-1.7) Medications Active Scripts Medications Dose Route/Sig Max Daily Dose Days Date Category Impression . 1. Acute pulmonary embolism in a patient who is diagnosed with COVID, can present as a hypercoagulable state and appears to be most likely etiology of his pulmonary embolism. We also need to rule out any occult malignancy since he has tiny lung nodules on a CT chest. No acute process in CT abdomen and pelvis 2. No significant tobacco use. 3. The patient with 2 vaccinations for COVID-19, last one 9 months ago. 4. Ab[address] chest with pulmonary embolism as discussed above, but in addition, he has bilateral lung nodules, largest being 6 mm in size. He needs to have metastatic workup. 5. Increased transaminases, likely secondary to COVID-19. 6. Left lower extremity DVT. Plan . 1. Patient is clinically doing well. Remains on room air. 2. started Eliquis 3. Venous Dopplers of lower extremities positive for left lower extremity DVT. 4. We will require minimum of 3-6 months of anticoagulation. 5. IV Solu-Medrol, complete steroid taper 6. CT abdomen and pelvis without any occult malignancy. 7. Discussed with RN. We will follow along with you. KEILY TINAJERO MD Dec 04, 2021 09:34
[2021-12-04 11:00] VITALS: BP 139/75
--- NOTE | 2021-12-04 11:14 | PDOC ---
[facility] PROGRESS NOTE Date of Service DOS: DATE: 12/04/21 TIME: 11:13 Chief Complaint Chief Complaint Acute Pulmonary embolism - right main pulmonary artery and upper lobe middle lobe and lower lobe also the left lower lobe left lingula. Lung nodules - left upper lobe 6 mm lung and scattered right middle and right lower lobe subcentimeter Chest pain - likely due to PE, improved NSTEMI - likely demand ischemia from PE, possibly some myocardial strain related to COVID 19 Covid-19 ERLINDA - likely vasomotor nephropathy from PE and COVID 19 vs CKD Hypotension - likely hypovolemic shock, responded well to fluids Hyperglycemia - Anion gap metabolic acidosis History of Present Illness History of Present Illness Mr Chawla is an 81 yo male w/ no significant PMHx who presents to ED via EMS on 11/30/2021 c/o sudden onset chest pain that woke him up, lasting 30 minutes. Also noted being cold with associated dyspnea and some myalgias. Notably hypotensive enroute with SBP 60s-70s. He did not c/o abdominal pain or nausea or vomiting. Labs with WBC 8.2, Hb 14.1, platelets 203, NA 140, K3.5, BUN 15, CR 1.6, glucose 278, D-dimer greater than 20, INR 1.2, rapid influenza negative, rapid COVID-19 positive, high-sensitivity troponin is 322 and on repeat is 981, albumin 2.8, bilirubin 0.6, AST 476, ALT 310, alkaline phosphatase 178 EKG sinus tachycardia with RBBB. CTPA revealed right main pulmonary artery pulmonary embolism with distal emboli bilaterally. Admitted for further care on heparin GTT. Cardiology and Pulmonology were consulted in the ED. 12/01: Chest pain resolved. Currently not hypoxic. Discussed with pulmonology who will continue anticoagulation with heparin and transition to Eliquis after he had CT abdomen pelvis to assess for potential underlying malignancy. 12/02: Venous Doppler positive for extensive left lower extremity DVT. CT abdomen pelvis with no concerning mass. Discussed with pulmonology will transition from heparin to Eliquis therapy today and likely discharge in next 24 hours. no shortness of breath or chest pain 12/03 Seen at bedside. Patient up walking around room. No complaints. Agreeable to d/c plan. D/c today. Greater than 30 min spent on d/c. Vitals/I&O Vitals/I&O: Vital Signs Date Time Temp Pulse Resp B/P (MAP) Pulse Ox O2 Delivery O2 Flow Rate FiO2 12/04/21 07:40 Room Air 12/04/21 07:00 98.2 57 18 145/75 (98) 97 98.2 12/03/21 08:00 2.0 I & O 12/03/21 12/03/21 12/04/21 14:59 22:59 06:59 Intake Total 200 ml 250 ml 320 ml Output Total 1 ml Balance 200 ml 249 ml 320 ml Physical Exam General: Alert, Oriented X3, Cooperative, No acute distress Heart: Regular rate (Sinus tachycardia), Normal S1, Normal S2, No murmurs Lungs: Clear Abdomen: Soft, No tenderness Extremities: No cyanosis, No edema Skin: No breakdown, No significant lesion Assessment and Plan Assessmemt and Plan Problems Medical Problems: (1) COVID-19 Status: Acute (2) Pulmonary embolus Status: Acute Comment Review of Relevant I have reviewed the following items fay (where applicable) has been applied. Justifications for Admission Other Justification RUSSELL CERVANTES MD Dec 04, 2021 11:14
[2021-12-05] MEDS ORDERED: APIX5TAB PO ×2 (11:31→11:43)
[2021-12-09] MEDS ORDERED: APIXABAN 5 MG TABLET. PO SCH (09:00)
== END 2021-12-04 12:25 | disposition home health service (06) | DRG 177 ==
LOC: ER 11:00 → ED HOLD 15:00 → 6 SOUTH 16:07
PROVIDERS: ADMIT Internal Medicine; ATTEND Internal Medicine
DX: U07.1 COVID-19 (principal); N17.0 Acute kidney failure with tubular necrosis; I26.99 Other pulmonary embolism without acute cor pulmonale; R57.1 Hypovolemic shock; I21.A1 Myocardial infarction type 2; D68.59 Other primary thrombophilia; E87.2 Acidosis; I82.402 Acute embolism and thrombosis of unspecified deep veins of left lower extremity; J98.11 Atelectasis; I45.10 Unspecified right bundle-branch block; N18.9 Chronic kidney disease, unspecified; Z83.3 Family history of diabetes mellitus; R73.9 Hyperglycemia, unspecified
CPT/HCPCS: 36415; 71045; 71275; 74176; 80048; 80053; 80061; 80076; 83036; 83735; 84443; 84484; 85025; 85027; 85379; 85520; 85610; 85651; 85730; 87428; 93005; 93970; 96365; 96376; J1644; J2920; J7030; Q9967; 99285-25; G0378